=== PATIENT | female | born 1940 | race African-American/Black ===

== ENCOUNTER 2022-01-18 11:54 | Emergency (ER) | payer OTHER ==
[~2022-01-18] VITALS: Ht 157.5 cm; Wt 44.0 kg
[2022-01-18] MEDS ORDERED: SODIUM CHLORIDE 0.9% 1,000 ML IV ONE (12:30)
[2022-01-18 13:20] LABS: CHLORIDE 105 mEq/L (98-107)
[2022-01-18 13:22] LABS: D-DIMER 3.5 mg/L FEU (<0.50); INR 1.6; PROTHROMBIN TIME 16.4 sec (9.6-11.0)
[2022-01-18 13:26] LABS: BASOPHILS % 0.6 % (0.0-2.0); EOSINOPHILS % 3.3 % (0.0-5.0); HEMATOCRIT. 26.1 % (36.0-48.0); HEMOGLOBIN. 7.7 g/dL (12.0-16.0); LYMPHOCYTES % 10.1 % (20.0-50.0); MEAN CORPUSCULAR VOLUME 71.7 fL (81.0-99.0); MEAN PLATELET VOLUME 7.7 fl (7.4-10.4); MONOCYTES % 6.9 % (2.0-8.0); NEUTROPHILS % 79.1 % (40.0-76.0); PLATELET 444 x1000/uL (130-400); RED BLOOD CELL COUNT 3.65 mill/uL (4.2-5.4); RED CELL DISTRIBUTION WIDTH 27.2 % (11.6-14.6)
[2022-01-18 13:50] LABS: PLATELET ESTIMATE SLIGHTLY INCREASED
[2022-01-18] MEDS ORDERED: DEXTROSE 50% WATER 50ML SYRINGE IV ONE (14:15)
[2022-01-18] MEDS ORDERED: IOHEXOL-350 100 ML BOTTLE ONE (15:08)
[2022-01-18 19:57] VITALS: BP 114/62
== END 2022-01-18 20:23 | disposition short-term general hospital (02) ==
LOC: ER 12:41
DX: R09.02 Hypoxemia (principal); R53.1 Weakness; I26.99 Other pulmonary embolism without acute cor pulmonale; E78.00 Pure hypercholesterolemia, unspecified; I10 Essential (primary) hypertension; Z20.822 Contact with and (suspected) exposure to COVID-19
CPT/HCPCS: 36415; 71045; 71275; 80053; 83605; 83690; 83880; 84484; 85025; 85379; 85610; 87040; 87426; 93005; 96361; 96374; 99285; C9803; J7030; Q9967

== ENCOUNTER 2022-03-10 13:06 | Emergency (ER) | payer OTHER ==
[~2022-03-10] VITALS: Ht 152.4 cm; Wt 50.0 kg
[2022-03-10] MEDS ORDERED: ACETAMINOPHEN 325MG TABLET PO ONE (13:30)
[2022-03-10] MEDS ORDERED: VANCOMYCIN 1G PREMIX 200 ML IV ONE (13:45)
[2022-03-10] MEDS ORDERED: MORPHINE SULFATE 2 MG/ML CPJ (NOT FOR IM USE) IV ONE ×2 (13:45→15:30)
[2022-03-10] MEDS ORDERED: PIPERACILLIN/TAZ 3.375G PREMIX 50 ML IV ONE (13:45)
[2022-03-10 14:32] LABS: HEMOGLOBIN. 11.5 g/dL (12.0-16.0); MEAN CORPUSCULAR HEMOGLOBIN 24.7 pg (28.0-32.0); MEAN CORPUSCULAR VOLUME 79.2 fL (81.0-99.0); MEAN PLATELET VOLUME 8.5 fl (7.4-10.4); PLATELET 425 x1000/uL (130-400); RED BLOOD CELL COUNT 4.67 mill/uL (4.2-5.4); RED CELL DISTRIBUTION WIDTH 31.4 % (11.6-14.6)
[2022-03-10 14:37] LABS: INR 1.3; PARTIAL THROMBOPLASTIN TIME 34.3 sec (23.4-31.0); PROTHROMBIN TIME 13.7 sec (9.6-11.0)
[2022-03-10 14:53] LABS: PLATELET ESTIMATE INCREASED
[2022-03-10] MEDS ORDERED: ACETAMINOPHEN 325MG TABLET PO NR (15:30)
[2022-03-10 15:45] LABS: CHLORIDE 100 mEq/L (98-107)
[2022-03-10] MEDS ORDERED: CLINDAMYCIN 300 MG in DEXTROSE 5% WATER 50 ML IV ONE (15:45)
[2022-03-10] MEDS: MORPHINE SULFATE 2 MG/ML CPJ (NOT FOR IM USE) IV NR ×2 (15:57→16:50)
[2022-03-10] MEDS ORDERED: VANCOMYCIN 1G PREMIX 200 ML IV NR (16:45)
[2022-03-10] MEDS ORDERED: MORPHINE SULFATE 2 MG/ML CPJ (NOT FOR IM USE) IV NR (19:00)
[2022-03-11 01:00] VITALS: BP 113/77
== END 2022-03-11 01:30 | disposition short-term general hospital (02) ==
LOC: ER 13:06 → CANBEDREQ 03-11 13:45
DX: I73.9 Peripheral vascular disease, unspecified (principal); R79.89 Other specified abnormal findings of blood chemistry; I10 Essential (primary) hypertension; E78.00 Pure hypercholesterolemia, unspecified; Z86.718 Personal history of other venous thrombosis and embolism; Z20.822 Contact with and (suspected) exposure to COVID-19
CPT/HCPCS: 36415; 73630; 80053; 83605; 83880; 84145; 85025; 85610; 85730; 86850; 86900; 86901; 87040; 87426; 93005; 93971; 96365; 96366; 96368; 96375; 99285; C9803; J2270; J2543; J3370; J3490; J7060

== ENCOUNTER 2022-03-31 09:19 | Emergency (ER) | payer OTHER ==
[~2022-03-31] VITALS: Ht 160 cm; Wt 50.0 kg
[2022-03-31] MEDS ORDERED: SODIUM CHLORIDE 0.9% 1,000 ML IV NR (10:15)
[2022-03-31 11:27] LABS: HEMATOCRIT. 28.6 % (36.0-48.0); HEMOGLOBIN. 8.9 g/dL (12.0-16.0); MEAN CORPUSCULAR HEMOGLOBIN 26.5 pg (28.0-32.0); MEAN CORPUSCULAR VOLUME 85.4 fL (81.0-99.0); MEAN PLATELET VOLUME 9.4 fl (7.4-10.4); PLATELET 321 x1000/uL (130-400); RED BLOOD CELL COUNT 3.35 mill/uL (4.2-5.4); RED CELL DISTRIBUTION WIDTH 29.7 % (11.6-14.6)
[2022-03-31 11:53] LABS: INR 1.3; PROTHROMBIN TIME 13.6 sec (9.6-11.0)
[2022-03-31] MEDS ORDERED: CEFTRIAXONE 1 G PREMIX 50 ML IV NR (12:00)
[2022-03-31 12:02] LABS: CHLORIDE 108 mEq/L (98-107)
[2022-03-31 12:02] LABS: PLATELET ESTIMATE NORMAL
[2022-03-31 12:31] LABS: CREATINE KINASE 787 IU/L (26-192)
[2022-03-31] MEDS ORDERED: MORPHINE SULFATE 2 MG/ML CPJ (NOT FOR IM USE) IV SCH (15:00)
[2022-03-31 15:37] LABS: CLARITY URINE CLOUDY (CLEAR); COLOR URINE DARK YELLOW (YELLOW); KETONES URINE 1+ (NEGATIVE); LEUKOCYTE ESTERASE URINE TRACE (NEGATIVE); NITRITE URINE NEGATIVE (NEGATIVE); OCCULT BLOOD URINE 2+ (NEGATIVE); PROTEIN URINE 2+ (NEGATIVE); SPECIFIC GRAVITY URINE 1.026 (1.005-1.030)
[2022-03-31] MEDS ORDERED: VANCOMYCIN 1G PREMIX 200 ML IV STA (15:44)
[2022-03-31] MEDS ORDERED: VANCOMYCIN 1,000 MG in DEXT 5% WATER 250 ML IV NR (17:00)
[2022-03-31 18:07] VITALS: BP 113/83
== END 2022-03-31 19:04 | disposition short-term general hospital (02) ==
LOC: ER 09:19 → CANBEDREQ 13:38 → ER 19:04
DX: I21.3 ST elevation (STEMI) myocardial infarction of unspecified site (principal); R62.7 Adult failure to thrive; I10 Essential (primary) hypertension; E78.00 Pure hypercholesterolemia, unspecified; Z68.1 Body mass index [BMI] 19.9 or less, adult; Z20.822 Contact with and (suspected) exposure to COVID-19; Z86.73 Personal history of transient ischemic attack (TIA), and cerebral infarction without residual deficits
CPT/HCPCS: 36415; 36573; 70450; 71045; 72170; 73080; 73090; 73110; 73130; 80053; 81003; 82550; 83605; 83880; 84484; 85025; 85610; 87040; 87426; 93005; 96365; 96366; 96375; 99291; C1725; C9803; J0696; J2270; J3370; J7060